=== PATIENT | male | born 1960 ===

== ENCOUNTER 2020-11-03 10:38 | Emergency (ER) | payer OTHER ==
[~2020-11-03] VITALS: Ht 167.6 cm; Wt 68.0 kg
[~2020-11-03 10:38] MED LIST: Augmentin 875-1 EACH PO; Bactrim Ds Tab1 EACH PO; CYCL10 PO; FAMO40 PO; Flomax0.4 MG PO; HYDACE25S PR; HYDACE5325 PO; IBUP800 PO; NAPR500 PO; Naprosyn500 MG PO; Norco 10-325 T1 EACH PO; Norco 5-325 Ta1 EACH PO; Norco 7.5-3251 EACH PO; Percocet 5-3251 EACH PO; Robaxin-750750 MG PO; TRAM50 PO; Ultram50 MG PO; Zofran Odt4 MG SL
[2020-11-03 11:55] LABS: BASOPHILS ABSOLUTE AUTO 0.06 K/mm3 (0.00-0.23); BASOPHILS PERCENT AUTO 1 % (0-2); EOSINOPHILS ABSOLUTE AUTO 0.09 K/mm3 (0.00-0.68); EOSINOPHILS PERCENT AUTO 1 % (0-6); Hemoglobin 15.9 g/dL (13.5-17.5); IMMATURE GRAN ABSOLUTE AUTO 0.03 K/mm3 (0.00-0.10); IMMATURE GRAN PERCENT AUTO 0 % (0-1); LYMPHOCYTES ABSOLUTE AUTO 2.79 K/mm3 (0.84-5.20); LYMPHOCYTES PERCENT AUTO 32 % (21-46); MONOCYTES ABSOLUTE AUTO 0.74 K/mm3 (0.16-1.47); MONOCYTES PERCENT AUTO 8 % (4-13); Mean Corpuscular HGB Conc 33.8 g/dL (31.5-36.5); Mean Corpuscular Volume 100 fL (80-100); Mean Platelet Volume 9.9 fL (9.1-12.4); NEUTROPHILS ABSOLUTE AUTO 5.14 K/mm3 (1.96-9.15); NEUTROPHILS PERCENT AUTO 58 % (41-73); Platelet Count 230 K/mm3 (150-400); RDW Coefficient Variation 12.7 % (11.7-14.2); RDW Standard Deviation 47.5 fL (35.1-46.3); Red Blood Cell Count 4.68 M/mm3 (4.30-5.90); White Blood Cell Count 8.85 K/mm3 (4.00-11.30)
[2020-11-03 12:14] LABS: Alanine Aminotransfer (ALT/SGP 59 U/L (12-78); Albumin, Blood 3.4 g/dL (3.4-5.0); Albumin/Globulin Ratio 0.8 (0.8-1.8); Alk Phos 61 U/L (50-136); Anion Gap 2 mmol/L (6-16); Aspartate Aminotrans (AST/SGOT 56 U/L (12-37); Blood Urea Nitrogen 12 mg/dL (8-24); Bun/Creatinine Ratio 14.2 (12.0-20.0); CO2, Blood 28 mmol/L (21-32); Calcium, Blood 8.6 mg/dL (8.5-10.1); Chloride, Blood 107 mmol/L (98-108); Creatinine, Blood 0.85 mg/dL (0.60-1.20); Globulin, Blood 4.2 g/dL (2.2-4.0); Glomerular Filtration Rate >60 (60-); Glucose, Blood 114 mg/dL (70-99); Potassium, Blood 4.3 mmol/L (3.5-5.5); Sodium, Blood 137 mmol/L (136-145); Total Protein, Blood 7.6 g/dL (6.4-8.2)
[2020-11-03] MEDS ORDERED: Cleocin HCl300 MG PO (13:31)
== END 2020-11-03 13:45 | disposition home or self-care (01) ==
LOC: ER 10:38
PROVIDERS: Emergency Medicine
DX: L02.01 Cutaneous abscess of face (principal); Z23 Encounter for immunization; F17.200 Nicotine dependence, unspecified, uncomplicated
CPT/HCPCS: 10060; 36415; 70487; 80053; 83605; 85025; 90471; 90714; 96365-59; 99283-25; J3490; Q9967

== ENCOUNTER 2022-04-18 09:00 | Emergency (ER) | payer OTHER ==
[~2022-04-18] VITALS: Ht 165.1 cm; Wt 60.8 kg
[~2022-04-18 09:00] MED LIST changes: +Cleocin HCl300 MG PO
[2022-04-18] MEDS ORDERED: LIDO700A20 TOP (11:18)
[2022-04-18] MEDS ORDERED: IBUP800 PO (11:18)
[2022-04-18] MEDS ORDERED: OXAYDO5 M1 PO ×2 (11:18→13:00)
== END 2022-04-18 11:53 | disposition home or self-care (01) ==
LOC: ER 09:00
DX: S23.29XA Dislocation of other parts of thorax, initial encounter (principal); F17.200 Nicotine dependence, unspecified, uncomplicated; W01.0XXA Fall on same level from slipping, tripping and stumbling without subsequent striking against object, initial encounter
CPT/HCPCS: 71101; 99283-25; A9270

== ENCOUNTER 2024-07-18 08:17 | Day surgery (SDC) | payer MEDICARE, OTHER ==
[~2024-07-18] VITALS: Ht 167.6 cm; Wt 64.8 kg
[~2024-07-18 08:17] MED LIST changes: +LIDO700A20 TOP; +Lactated Ringer's 1,000 ML IV ONE; +OXAYDO5 M1 PO; +propofoL 50 ML IV ONE
[2024-07-18] MEDS ORDERED: Lactated Ringer's 1,000 ML IV ONE (09:18)
[2024-07-18] MEDS ORDERED: Ipratropium/Albuterol SulF 2.5-0.5MG/3 ML Amp ONE (09:19)
--- NOTE | 2024-07-18 09:30 | NUR ---
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 PT STATES HAS "MUCUS PRODUCTION WHEN I WAKE UP IN THE MORNING. LUNGS CLEAR TO ASCULTATION, GIVEN PROPHYLATICALLY PER MD ORDERS.
[2024-07-18] MEDS ORDERED: propofoL 50 ML IV ONE (10:53)
[2024-07-18 11:33] VITALS: BP 147/89
== END 2024-07-18 11:37 | disposition home or self-care (01) ==
LOC: ORSCSDS 08:17
PROVIDERS: Internal Medicine Gastroenterology
PROC: 0DBM8ZX Excision of Descending Colon, Via Natural or Artificial Opening Endoscopic, Diagnostic (ICD-10-PCS; principal; 2024-07-18 09:45)
PROC: 0DBH8ZX Excision of Cecum, Via Natural or Artificial Opening Endoscopic, Diagnostic (ICD-10-PCS; principal; 2024-07-18 09:45)
PROC: 0DB78ZX Excision of Stomach, Pylorus, Via Natural or Artificial Opening Endoscopic, Diagnostic (ICD-10-PCS; principal; 2024-07-18 09:45)
PROC: 0DBK8ZX Excision of Ascending Colon, Via Natural or Artificial Opening Endoscopic, Diagnostic (ICD-10-PCS; principal; 2024-07-18 09:45)
PROC: 0DBP8ZX Excision of Rectum, Via Natural or Artificial Opening Endoscopic, Diagnostic (ICD-10-PCS; principal; 2024-07-18 09:45)
PROC: 0DBL8ZX Excision of Transverse Colon, Via Natural or Artificial Opening Endoscopic, Diagnostic (ICD-10-PCS; principal; 2024-07-18 09:45)
DX: R10.13 Epigastric pain (principal); Z86.0101 Personal history of adenomatous and serrated colon polyps; K21.9 Gastro-esophageal reflux disease without esophagitis; K62.3 Rectal prolapse; K29.50 Unspecified chronic gastritis without bleeding; B96.81 Helicobacter pylori [H. pylori] as the cause of diseases classified elsewhere; D12.3 Benign neoplasm of transverse colon; D12.0 Benign neoplasm of cecum; D12.2 Benign neoplasm of ascending colon; D12.4 Benign neoplasm of descending colon; D12.8 Benign neoplasm of rectum; K63.5 Polyp of colon; Z86.19 Personal history of other infectious and parasitic diseases; F17.210 Nicotine dependence, cigarettes, uncomplicated
CPT/HCPCS: 88305; 88342; J2704; J7120